=== PATIENT | male | born 1975 ===

== ENCOUNTER 2017-03-04 12:55 | Emergency (ER) | payer SELFPAY ==
[2017-03-04 13:32] VITALS: BP 125/69
== END 2017-03-04 22:22 | disposition left against medical advice (07) ==
LOC: ED 12:55
DX: M79.605 Pain in left leg (principal); Z53.21 Procedure and treatment not carried out due to patient leaving prior to being seen by health care provider

== ENCOUNTER 2017-10-02 16:54 | Emergency (ER) | payer SELFPAY ==
[2017-10-02] MEDS ORDERED: TETRACAINE 0.5% OU ONE (18:00)
[2017-10-02] MEDS ORDERED: TETRACAINE 0.5% ONE (18:01)
[2017-10-02] MEDS ORDERED: FUL-GLO OP ONE (18:01)
[2017-10-02] MEDS ORDERED: BSS ONE (18:01)
[2017-10-02] MEDS ORDERED: BOOSTRIX IM ONE (18:05)
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
[2017-10-02 19:18] VITALS: BP 152/86
== END 2017-10-02 19:18 | disposition other institution (70) ==
LOC: ED 16:54
DX: S05.92XA Unspecified injury of left eye and orbit, initial encounter (principal); H54.62 Unqualified visual loss, left eye, normal vision right eye; F17.200 Nicotine dependence, unspecified, uncomplicated; W22.8XXA Striking against or struck by other objects, initial encounter; Y93.89 Activity, other specified; Y92.89 Other specified places as the place of occurrence of the external cause; Y99.8 Other external cause status
CPT/HCPCS: 90471; 90715; 99284